=== PATIENT | female | born 1955 | race Caucasian/White ===

== ENCOUNTER 2017-10-14 17:19 | Emergency (ER) | payer BC ==
[~2017-10-14] VITALS: Ht 160 cm; Wt 90.3 kg
[~2017-10-14 17:19] MED LIST: CYMBALTA; SYNTHROID125 MCG; TOPAMAX25 M1 PO; VITAMIN D
[2017-10-14] MEDS ORDERED: KLONOPIN0.5 MG PO (17:30)
[2017-10-14] MEDS ORDERED: RESTORIL30 MG PO (17:31)
[2017-10-14] MEDS ORDERED: COZAAR 50 MG TA50 M2 PO (17:31)
[2017-10-14] MEDS ORDERED: CYMBALTA60 MG PO (17:31)
[2017-10-14] MEDS ORDERED: PREDNISONE 10 M10 MG PO (18:18)
[2017-10-14] MEDS ORDERED: HYDROCODONE-AP1 EAC6 PO (18:18)
[2017-10-14] MEDS ORDERED: COLCHICINE0.6 MG PO (18:18)
[2017-10-14 18:33] VITALS: BP 141/72
== END 2017-10-14 18:34 | disposition home or self-care (01) ==
LOC: M.ERS 17:19
DX: M25.461 Effusion, right knee (principal); I10 Essential (primary) hypertension; E03.9 Hypothyroidism, unspecified; G43.909 Migraine, unspecified, not intractable, without status migrainosus; M10.9 Gout, unspecified